=== PATIENT | male | born 1995 | race Caucasian/White ===

== ENCOUNTER 2017-06-24 07:57 | Emergency (ER) | payer SELFPAY ==
[~2017-06-24] VITALS: Ht 165.1 cm; Wt 54.0 kg
[2017-06-24] MEDS ORDERED: FAMOTIDINE 20MG/2ML VIAL IV STA (08:15)
[2017-06-24] MEDS ORDERED: SODIUM CHLORIDE 0.9% 1,000 ML IV ONE (08:15)
[2017-06-24] MEDS ORDERED: ONDANSETRON HCL 4MG/2ML VIAL IV STA (08:15)
[2017-06-24 08:47] LABS: BASOPHILS % 0.3 % (0.0-2.0); EOSINOPHILS % 0.1 % (0.0-5.0); HEMATOCRIT. 45.8 % (42.0-52.0); HEMOGLOBIN. 15.3 g/dL (14.0-18.0); LYMPHOCYTES % 9.8 % (20.0-50.0); MEAN CORPUSCULAR HEMOGLOBIN 30.1 pg (28.0-32.0); MEAN CORPUSCULAR VOLUME 90.4 fL (80.0-94.0); MEAN PLATELET VOLUME 9.1 fl (7.4-10.4); NEUTROPHILS % 84.8 % (40.0-76.0); PLATELET 352 x1000/uL (130-400); RED BLOOD CELL COUNT 5.07 mill/uL (4.7-6.1)
[2017-06-24 08:53] LABS: CHLORIDE 110 mEq/L (98-107)
[2017-06-24 09:01] LABS: INR 1.1; PROTHROMBIN TIME 11.2 sec (9.4-11.6)
[2017-06-24] MEDS ORDERED: POTASSIUM CHLORIDE 20MEQ TABLET SR PO ONE (09:45)
[2017-06-24 10:07] LABS: CLARITY URINE CLEAR (CLEAR); COLOR URINE YELLOW (YELLOW); KETONES URINE 1+ (NEGATIVE); LEUKOCYTE ESTERASE URINE NEGATIVE (NEGATIVE); NITRITE URINE NEGATIVE (NEGATIVE); OCCULT BLOOD URINE NEGATIVE (NEGATIVE); PROTEIN URINE NEGATIVE (NEGATIVE); SPECIFIC GRAVITY URINE 1.025 (1.005-1.030); UROBILINOGEN URINE 0.2 E.U./dL (0.2-1.0)
[2017-06-24] MEDS ORDERED: METOCLOPRAMIDE HCL 10MG/2ML VIAL IV ONE (10:15)
[2017-06-24 10:42] LABS: *BARBITURATES SCREEN URINE NEGATIVE (NEGATIVE)
[2017-06-24 10:43] LABS: *AMPHETAMINES SCREEN URINE NEGATIVE (NEGATIVE); *BENZODIAZEPINES SCREEN URINE NEGATIVE (NEGATIVE); *COCAINE SCREEN URINE NEGATIVE (NEGATIVE); METHADONE URINE SCREEN NEGATIVE (NEGATIVE); OPIATES URINE SCREEN NEGATIVE (NEGATIVE); PHENCYCLIDINE URINE SCREEN NEGATIVE (NEGATIVE)
[2017-06-24 10:44] LABS: CANNABINOID URINE SCREEN PRESUMTIVE POSITIVE (NEGATIVE)
[2017-06-24] MEDS ORDERED: LORAZEPAM 2MG/ML CPJ IV ONE (10:45)
[2017-06-24 13:01] VITALS: BP 115/67
[2017-06-24] MEDS ORDERED: IOHEXOL-300 100 ML BOTTLE ONE (13:10)
== END 2017-06-24 13:59 | disposition left against medical advice (07) ==
LOC: ER 08:02 → CANBEDREQ 16:29
DX: R10.13 Epigastric pain (principal); D72.829 Elevated white blood cell count, unspecified; R11.2 Nausea with vomiting, unspecified; F17.200 Nicotine dependence, unspecified, uncomplicated; R19.7 Diarrhea, unspecified; Z88.0 Allergy status to penicillin; Z79.899 Other long term (current) drug therapy
CPT/HCPCS: 36415; 74177; 76705; 80053; 80305; 81003; 83605; 83690; 85025; 85610; 87040; 96361; 96374; 96375; 99285; J2060; J2405; J2765; J3490; J7030; Q9967